=== PATIENT | female | born 1985 | race Caucasian/White ===

== ENCOUNTER 2019-05-13 08:26 | Emergency (ER) | payer MEDICAID ==
[~2019-05-13] VITALS: Ht 162.6 cm; Wt 110.0 kg
--- NOTE | 2019-05-13 08:43 | NUR ---
Patient c/o glass under her skin for the past year. PA in to see patient. She further disclosed that she has had a blood clot in the past when she had a Nexplanon implant at the time. She is [place] her chest. Admits to SOB, but denies CP. She is sure she dose not have a blood clot. Up to bathroom with steady gait. Report to Fatmata LONGO
[2019-05-13] MEDS ORDERED: LORazepam 1 MG tablet PO ONE (09:10)
[2019-05-13 09:41] LABS: BASOPHILS # (AUTO) 0.1 X10'3 (0-0.2); EOSINOPHILS # (AUTO) 0.2 X10'3 (0-0.9); HEMATOCRIT 39.8 % (35.0-45.0); HEMOGLOBIN 13.5 g/dl (12.0-16.0); LYMPHOCYTES # (AUTO) 1.8 X10'3 (1.1-4.8); LYMPHOCYTES % (AUTO) 19.6 % (21-51); MEAN CORPUSCULAR HEMOGLOBIN 28.5 PG (27.0-31.0); MEAN CORPUSCULAR HGB CONC 33.8 g/dL (33.0-36.5); MEAN CORPUSCULAR VOLUME 84.4 FL (78-98); MEAN PLATELET VOLUME 8.1 FL (7.4-10.4); MONOCYTES # (AUTO) 0.8 X10'3 (0-0.9); MONOCYTES % (AUTO) 9.2 % (2-12); NEUTROPHILS # (AUTO) 6.3 X10'3 (1.8-7.7); NEUTROPHILS % (AUTO) 68.2 % (42-75); PLATELET COUNT 354 X10'3 (140-440); RED BLOOD COUNT 4.72 X10'6 (4.20-5.60); RED CELL DISTRIBUTION WIDTH 15.9 % (11.5-14.5); WHITE BLOOD COUNT 9.2 X10'3 (4.5-11.0)
[2019-05-13 09:53] LABS: D-DIMER 0.68 MG/L FEU (0-0.50)
[2019-05-13 09:55] LABS: ALANINE AMINOTRANSFERASE 32 U/L (12-78); ALBUMIN 3.4 G/DL (3.4-5.0); ALBUMIN/GLOBULIN RATIO 0.7 (1.1-1.5); ALKALINE PHOSPHATASE 94 IU/L (46-116); ANION GAP 11 (8-16); ASPARTATE AMINO TRANSFERASE 24 U/L (10-37); BILIRUBIN,TOTAL 0.3 MG/DL (0.1-1.0); BLOOD UREA NITROGEN 7 MG/DL (7-18); BUN/CREATININE RATIO 8.9 (6.6-38.0); CALCIUM 9.4 MG/DL (8.5-10.1); CHLORIDE 103 MMOL/L (99-107); CREATININE 0.79 MG/DL (0.40-0.90); GLUCOSE 242 MG/DL (70-104); POTASSIUM 3.3 MMOL/L (3.5-5.1); SODIUM 140 MMOL/L (135-145); TOTAL CARBON DIOXIDE 25.6 MMOL/L (24-32); TOTAL PROTEIN 8.1 G/DL (6.4-8.2); eGFR 82 ML/MIN
[2019-05-13] MEDS ORDERED: iohexol 350MG/ML 100ml bottle IV ONE (11:21)
[2019-05-13 12:57] VITALS: BP 129/64
== END 2019-05-13 13:04 | disposition home or self-care (01) ==
LOC: ER 08:26
DX: F41.9 Anxiety disorder, unspecified (principal); R05 Cough; M79.605 Pain in left leg; M79.604 Pain in right leg; Z88.0 Allergy status to penicillin
CPT/HCPCS: 36415; 71275; 80053; 84484; 85025; 85379; 93970; 99285; Q9967